=== PATIENT | female | born 1965 | race Two or more races ===

== ENCOUNTER 2022-02-09 11:37 | Emergency (ER) | payer OTHER ==
[~2022-02-09] VITALS: Ht 144.8 cm; Wt 92.5 kg
[2022-02-09] MEDS ORDERED: HYDROCHLOROTHIA25 MG PO (12:00)
[2022-02-09] MEDS ORDERED: COZAAR100 MG PO (12:01)
[2022-02-09] MEDS ORDERED: ZOCOR20 MG PO (12:01)
== END 2022-02-09 15:18 | disposition home or self-care (01) ==
LOC: ER 11:37
DX: R42 Dizziness and giddiness (principal); I10 Essential (primary) hypertension; Z91.013 Allergy to seafood

== ENCOUNTER 2022-05-21 12:51 | Emergency (ER) | payer OTHER ==
[~2022-05-21] VITALS: Ht 124.5 cm; Wt 93.0 kg
[~2022-05-21 12:51] MED LIST: COZAAR100 MG PO; HYDROCHLOROTHIA25 MG PO; ZOCOR20 MG PO
== END 2022-05-21 15:48 | disposition home or self-care (01) ==
LOC: ER 12:51
DX: R07.89 Other chest pain (principal); M79.602 Pain in left arm; I10 Essential (primary) hypertension; E11.9 Type 2 diabetes mellitus without complications; Z91.013 Allergy to seafood

== ENCOUNTER 2024-12-26 09:18 | Outpatient (CLI) | payer OTHER | END 2024-12-26 09:20 | disposition home or self-care (01) | LOC: RAD 09:18 | PROVIDERS: ATTEND General Practice | DX: M25.512 Pain in left shoulder (principal) ==